=== PATIENT | female | born 1970 | race Caucasian/White ===

== ENCOUNTER → 2017-07-18 | Outpatient (CLI) | payer OTHER | LOC: FIMAGING 13:00 | PROVIDERS: ATTEND Obstetrics & Gynecology | DX: Z12.31 Encounter for screening mammogram for malignant neoplasm of breast (principal) | CPT/HCPCS: G0202 ==

== ENCOUNTER 2017-09-14 14:07 | Emergency (ER) | payer OTHER ==
--- NOTE | 2017-09-14 14:17 | EDPHY ---
H & P Time Seen by Provider: 09/14/17 14:16 HPI/ROS: CHIEF COMPLAINT: Acute abdominal pain HISTORY OF PRESENT ILLNESS: The patient presents to the ED with complaints acute abdominal pain. The patient reports that she is status post cholecystectomy approximately 1 year ago. Since that time she continues to get intermittent bouts of abdominal pain which typically is treated with Levsin. The patient states that she developed a severe acute episode of pain earlier today with associated nausea, vomiting and radiation across her back. The patient denies any fever dysuria. She denies any history of fall or trauma. The patient denies significant past medical history outside of insomnia and anxiety. REVIEW OF SYSTEMS: A comprehensive 10 point review of systems is otherwise negative aside from elements mentioned in the history of present illness. Source: Patient Exam Limitations: No limitations - Medical/Surgical History Hx Asthma: No Hx Chronic Respiratory Disease: No Hx Diabetes: No Hx Cardiac Disease: No Hx Renal Disease: No Hx Cirrhosis: No Hx Alcoholism: No Hx HIV/AIDS: No Hx Splenectomy or Spleen Trauma: No Other PMH: medical depression, anxiety,hypothyroid. surgery 2 , left knee surgery, hysterectomy - Social History Smoking Status: Never smoked - Physical Exam Exam: General Appearance: Alert, mild discomfort secondary to retching Eyes: Pupils equal and round no pallor or injection ENT, Mouth: Mucous membranes moist Respiratory: There are no retractions, lungs are clear to auscultation Cardiovascular: Regular rate and rhythm Gastrointestinal: Tenderness to palpation noted throughout the mid abdomen Neurological: A&O, normal motor function, normal sensory exam, normal cranial nerves Skin: Warm and dry, no rashes Musculoskeletal: Neck is supple nontender Extremities: symmetrical, full range of motion Constitutional: Initial Vital Signs Temperature (C) 36.2 C 09/14/17 14:10 Heart Rate 76 09/14/17 14:10 Respiratory Rate 16 09/14/17 14:10 Blood Pressure 134/75 H 09/14/17 14:10 O2 Sat (%) 94 09/14/17 14:10 O2 Delivery Mode Nasal Cannula O2 (L/minute) 2 Allergies/Adverse Reactions: niacin Allergy (Severe, Verified 09/29/14 13:12) Swelling/neck,face,throat Home Medications: Medication Instructions Recorded RX: Topiramate [Topamax 100MG (*)] 600 mg PO HS 10/04/14 RX: ZOLPIDEM TARTRATE [Ambien CR 25 mg PO HS 10/04/14 12.5 mg] RX: clonazePAM [klonoPIN (*)] 7 mg PO HS 10/04/14 Seroquel 04/07/16 Synthroid 04/07/16 Ondansetron Odt [Zofran Odt] 4 mg PO Q4PRN PRN #20 tab 09/14/17 Medical Decision Making ED Course/Re-evaluation: The patient had an IV established. She received 4 mg of morphine. She received 4 mg of IV Zofran. The patient received a L of normal saline. The patient's laboratory studies demonstrate no evidence of leukocytosis, acute pancreatitis or evidence of cholangitis/choledocholithiasis. The patient underwent serial examinations in the ED and had complete resolution of her pain. I re-evaluated the patient at 4:15 p.m.. I find her abdomen to be benign. The patient will follow up with her regular assistant hvac mechanic Dr. Cuco Birch on Sunday. She understands to return to the emergency department this weekend for any worsening symptoms or other concerns. The patient will be discharged home with a prescription for Zofran. Differential Diagnosis: Differential diagnosis considered includes cholangitis, choledocholithiasis, pancreatitis, nephrolithiasis - Data Points Laboratory Results: Laboratory Results 09/14/17 14:20 09/14/17 14:20 09/14/17 09/14/17 14:20 14:20 WBC 8.38 10^3/uL 10^3/uL (3.80-9.50) RBC 5.12 10^6/uL 10^6/uL (4.18-5.33) Hgb 16.1 g/dL g/dL (12.6-16.3) Hct 45.2 % % (38.0-47.0) MCV 88.3 fL fL (81.5-99.8) MCH 31.4 pg pg (27.9-34.1) MCHC 35.6 g/dL g/dL (32.4-36.7) RDW 11.8 % % (11.5-15.2) Plt Count 276 10^3/uL 10^3/uL (150-400) MPV 8.9 fL fL (8.7-11.7) Neut % (Auto) 83.9 % H % (39.3-74.2) Lymph % (Auto) 11.1 % L % (15.0-45.0) [place] % (Auto) 4.3 % L % (4.5-13.0) Eos % (Auto) 0.0 % L % (0.6-7.6) Baso % (Auto) 0.5 % % (0.3-1.7) Nucleat RBC Rel Count 0.0 % % (0.0-0.2) Absolute Neuts (auto) 7.03 10^3/uL H 10^3/uL (1.70-6.50) Absolute Lymphs (auto) 0.93 10^3/uL L 10^3/uL (1.00-3.00) Absolute Monos (auto) 0.36 10^3/uL 10^3/uL (0.30-0.80) Absolute Eos (auto) 0.00 10^3/uL L 10^3/uL (0.03-0.40) Absolute Basos (auto) 0.04 10^3/uL 10^3/uL (0.02-0.10) Absolute Nucleated RBC 0.00 10^3/uL 10^3/uL (0-0.01) Immature Gran % 0.2 % % (0.0-1.1) Immature Gran # 0.02 10^3/uL 10^3/uL (0.00-0.10) Sodium 139 mEq/L mEq/L (134-144) Potassium 3.6 mEq/L mEq/L (3.5-5.2) Chloride 102 mEq/L mEq/L (97-110) Carbon Dioxide 19 mEq/l L mEq/l (22-31) Anion Gap 18 mEq/L H mEq/L (8-16) BUN 17 mg/dL mg/dL (7-23) Creatinine 1.0 mg/dL mg/dL (0.6-1.0) Estimated GFR 59 Glucose 102 mg/dL H mg/dL (70-100) Calcium 10.2 mg/dL mg/dL (8.5-10.4) Total Bilirubin 1.5 mg/dL H mg/dL (0.1-1.4) Conjugated Bilirubin 0.0 mg/dL mg/dL (0.0-0.5) Unconjugated Bilirubin 1.5 mg/dL H mg/dL (0.0-1.1) AST 33 IU/L IU/L (14-46) ALT 28 IU/L IU/L (9-52) Alkaline Phosphatase 49 IU/L IU/L (38-126) Total Protein 7.6 g/dL g/dL (6.3-8.2) Albumin 5.0 g/dL g/dL (3.5-5.0) Lipase 111 IU/L IU/L (23-300) Medications Given: Discontinued Medications Sodium Chloride (Ns) 1,000 mls @ 0 mls/hr IV EDNOW ONE; Wide Open PRN Reason: Protocol Stop: 09/14/17 14:32 Last Admin: 09/14/17 14:35 Dose: 1,000 mls Morphine Sulfate (Morphine) 4 mg IVP EDNOW ONE Stop: 09/14/17 14:32 Last Admin: 09/14/17 14:36 Dose: 4 mg Ondansetron HCl (Zofran) 4 mg IVP EDNOW ONE Stop: 09/14/17 14:32 Last Admin: 09/14/17 14:35 Dose: 4 mg Departure - Departure Disposition: Home, Routine, Self-Care Clinical Impression: Acute abdominal pain Condition: Good Instructions: Abdominal Pain (ED) Additional Instructions: 1. Please return to the emergency department this weekend for any recurrence severe pain or other concerns. 2. Please follow up with your assistant hvac mechanic as needed. Referrals: Cuco Birch MD, FACG [Medical Doctor] - As per Instructions Prescriptions: Ondansetron Odt [Zofran Odt] 4 mg PO Q4PRN PRN #20 tab PRN Reason: For Nausea
[2017-09-14] MEDS ORDERED: ONDANSETRON 4 MG/2 ML VIAL IVP ONE ×2 (14:31)
[2017-09-14] MEDS ORDERED: NS 1,000 ML IV ONE ×2 (14:31)
[2017-09-14 14:36] LABS: PLATELET COUNT 276 10^3/uL (150-400)
[2017-09-14 16:20] VITALS: BP 103/65; PULSE 84; RESP 17; TEMP 98.1; O2SAT 99
== END 2017-09-14 16:57 | disposition home or self-care (01) ==
DX: R10.0 Acute abdomen (principal); E86.9 Volume depletion, unspecified; Z90.49 Acquired absence of other specified parts of digestive tract; Z90.710 Acquired absence of both cervix and uterus
CPT/HCPCS: 96374; J2405

== ENCOUNTER → 2017-09-28 | Outpatient (CLI) | payer OTHER | LOC: CIMAGING 12:42 | PROVIDERS: ATTEND Obstetrics & Gynecology | DX: N83.292 Other ovarian cyst, left side (principal) | CPT/HCPCS: 76856-PO ==

== ENCOUNTER → 2018-04-19 | Outpatient (CLI) | payer OTHER | LOC: FIMAGING 10:17 | PROVIDERS: ATTEND Obstetrics & Gynecology | DX: N83.202 Unspecified ovarian cyst, left side (principal); Z90.710 Acquired absence of both cervix and uterus ==

== ENCOUNTER 2019-05-01 06:42 | Inpatient (IN) | payer OTHER | END 2019-05-09 16:36 | disposition home or self-care (01) | LOC: F3E 17:22 ==